=== PATIENT | female | born 1975 | race Caucasian/White ===

== ENCOUNTER 2018-07-12 06:53 | Day surgery (SDC) | payer OTHER ==
[~2018-07-12 06:53] MED LIST: MEDROLPACK PO; ORPH100T PO
== END 2018-07-12 17:37 | disposition home or self-care (01) ==
LOC: CIR.AMB 06:53
DX: N84.0 Polyp of corpus uteri (principal)

== ENCOUNTER 2019-04-10 10:57 | Outpatient (CLI) | payer OTHER | END 2019-04-10 11:10 | disposition home or self-care (01) | LOC: MAMO-SONO 10:57 | DX: Z12.31 Encounter for screening mammogram for malignant neoplasm of breast (principal); Z87.898 Personal history of other specified conditions; N60.11 Diffuse cystic mastopathy of right breast ==

== ENCOUNTER → 2021-04-09 | Outpatient (CLI) | payer OTHER | END | disposition home or self-care (01) | LOC: MAMO-SONO 09:02 | DX: N60.09 Solitary cyst of unspecified breast (principal) ==